=== PATIENT | female | born 1950 | race Caucasian/White ===

== ENCOUNTER → 2017-01-23 | Outpatient (CLI) | payer OTHER | LOC: BMCIMAGING 09:51 | PROVIDERS: ATTEND Family Medicine | DX: S49.91XA Unspecified injury of right shoulder and upper arm, initial encounter (principal); R93.8 Abnormal findings on diagnostic imaging of other specified body structures; M19.011 Primary osteoarthritis, right shoulder; Y93.9 Activity, unspecified; Y92.39 Other specified sports and athletic area as the place of occurrence of the external cause ==